=== PATIENT | male | born 1970 | race Caucasian/White ===

== ENCOUNTER 2021-04-09 08:57 | Inpatient (IN) | payer OTHER ==
[~2021-04-09] VITALS: Ht 177.8 cm; Wt 103.0 kg
[~2021-04-09 08:57] MED LIST: AMLODIPINE BESY10 MG PO; AURYXIA210 MG PO; CALCIUM ACETAT667 M1 PO; CALCIUM500 M1 PO; CATAPRES 0.1MG0.1 MG PO; ECOTRIN81 MG PO; ESZOPICLONE3 MG PO; FENOFIBRATE160 MG PO; GABAPENTIN800 MG PO; HUMALOG MI100 UNIT/4 SQ; METOPROLOL TAR100 MG PO; RENAGEL800 MG PO; TYLENOL 500 MG500 MG PO; VITAMIN D3125 MCG PO; VITAMIN D35000 UNIT PO; ZOFRAN4 MG PO
[2021-04-09 10:49] LABS: HEMOGLOBIN 11.9 gm/dl (14.0-17.5); RED BLOOD COUNT 3.93 M/UL (4.20-5.50); WHITE BLOOD COUNT 4.9 K/UL (4.5-11.0)
[2021-04-09] MEDS ORDERED: HYDRALAZINE HCL25 MG PO (11:57)
[2021-04-09] MEDS ORDERED: COREG25 MG PO (12:05)
[2021-04-09] MEDS ORDERED: LUNESTA1 MG PO (12:06)
--- NOTE | 2021-04-09 12:49 | NUR ---
AT 10AM UPON PATIENT ARRIVAL AFTER PATIENT TRANSFERRED TO BED FROM [facility], PATIENT NOTED TO BECOME LETHARGIC AND NONCOMMUNICATIVE. WITH STERNAL RUB AND AMMONIA INHALANT PATIENT BECOMES AWAKE AND ALERT. MD PRESENT AT BEDSIDE.
[2021-04-09] MEDS ORDERED: TOPAMAX100 MG PO (17:09)
[2021-04-09] MEDS ORDERED: WELLBUTRIN SR150 M1 PO (17:10)
[2021-04-10 03:15] LABS: HEMOGLOBIN 10.8 gm/dl (14.0-17.5); RED BLOOD COUNT 3.6 M/UL (4.20-5.50); WHITE BLOOD COUNT 4.2 K/UL (4.5-11.0)
[2021-04-10 10:15] LABS: HBSAG SCREEN Negative (Negative); HEP A AB, IGM Negative (Negative); HEP B CORE AB, IGM Negative (Negative); HEP C VIRUS AB 0.1 (0.0-0.9)
[2021-04-10] MEDS ORDERED: CALCIUM CARBON500 MG PO (14:51)
[2021-05-30] MEDS ORDERED: COREG12.5 MG PO (11:55)
[2021-05-30] MEDS ORDERED: BASAGLAR K100 UNIT/1 SQ (11:55)
[2021-05-30] MEDS ORDERED: GABAPENTIN800 MG PO (12:06)
[2021-05-30] MEDS ORDERED: HUMALOG MI100 UNITS/ SQ (12:08)
== END 2021-04-10 17:53 | disposition home or self-care (01) | DRG 640 ==
LOC: PROG CARE 10:19
PROVIDERS: Physician Assistant; ADMIT Internal Medicine
PROC: 5A1D70Z Performance of Urinary Filtration, Intermittent, Less than 6 Hours Per Day (ICD-10-PCS; principal; 2021-04-09)
DX: E87.5 Hyperkalemia (principal); N18.6 End stage renal disease; I12.0 Hypertensive chronic kidney disease with stage 5 chronic kidney disease or end stage renal disease; I44.0 Atrioventricular block, first degree; E78.5 Hyperlipidemia, unspecified; E83.51 Hypocalcemia; E11.22 Type 2 diabetes mellitus with diabetic chronic kidney disease; Z20.822 Contact with and (suspected) exposure to COVID-19; F43.10 Post-traumatic stress disorder, unspecified; E11.21 Type 2 diabetes mellitus with diabetic nephropathy; F32.9 Major depressive disorder, single episode, unspecified; Z91.14 Patient's other noncompliance with medication regimen; Z79.4 Long term (current) use of insulin; Z98.49 Cataract extraction status, unspecified eye; Z90.89 Acquired absence of other organs; R94.31 Abnormal electrocardiogram [ECG] [EKG]
CPT/HCPCS: 36415; 80053; 80074; 82140; 82803; 82962; 84439; 84443; 85025; 90935; 90937; 93005; 94664; 94760; 97161; U0002

== ENCOUNTER 2021-05-30 12:36 | Observation (INO) | payer OTHER ==
[~2021-05-30] VITALS: Ht 180.3 cm; Wt 100.4 kg
[~2021-05-30 12:36] MED LIST changes: +BASAGLAR K100 UNIT/1 SQ; +CALCIUM CARBON500 MG PO; +COREG12.5 MG PO; +COREG25 MG PO; +HUMALOG MI100 UNITS/ SQ; +HYDRALAZINE HCL25 MG PO; +LUNESTA1 MG PO; +TOPAMAX100 MG PO; +WELLBUTRIN SR150 M1 PO
[2021-05-30 13:13] LABS: HEMOGLOBIN 10.9 gm/dl (14.0-17.5); RED BLOOD COUNT 3.54 M/UL (4.20-5.50); WHITE BLOOD COUNT 4.4 K/UL (4.5-11.0)
[2021-05-30] MEDS ORDERED: VITAMIN D3125 MCG PO (16:54)
[2021-05-30] MEDS ORDERED: VISTARIL 50 MG50 MG PO (16:56)
[2021-05-30] MEDS ORDERED: BRINZOLAMIDE15 ML EYEBOTH (16:57)
[2021-05-30] MEDS ORDERED: COMBIGAN EYE DRO5 ML EYEBOTH (16:57)
[2021-05-30] MEDS ORDERED: CIALIS20 MG PO (16:59)
[2021-05-30] MEDS ORDERED: NORVASC5 MG PO (17:08)
[2021-05-30] MEDS ORDERED: ROCALTROL CA0.25 MCG PO (17:25)
[2021-05-30] MEDS ORDERED: CALCIUM500 M1 PO (19:53)
[2021-05-31 06:30] LABS: HEMOGLOBIN 10.6 gm/dl (14.0-17.5); RED BLOOD COUNT 3.4 M/UL (4.20-5.50); WHITE BLOOD COUNT 4.2 K/UL (4.5-11.0)
== END 2021-05-31 18:31 | disposition home or self-care (01) ==
LOC: ER1 12:36 → CDU 15:18 → M/S 20:09
PROVIDERS: Emergency Medicine; Physician Assistant Medical; ADMIT Internal Medicine
DX: E11.649 Type 2 diabetes mellitus with hypoglycemia without coma (principal); G93.41 Metabolic encephalopathy; I12.0 Hypertensive chronic kidney disease with stage 5 chronic kidney disease or end stage renal disease; E11.22 Type 2 diabetes mellitus with diabetic chronic kidney disease; N18.6 End stage renal disease; E78.5 Hyperlipidemia, unspecified; F43.10 Post-traumatic stress disorder, unspecified; F32.9 Major depressive disorder, single episode, unspecified; R93.0 Abnormal findings on diagnostic imaging of skull and head, not elsewhere classified; R94.31 Abnormal electrocardiogram [ECG] [EKG]; Z91.19 Patient's noncompliance with other medical treatment and regimen; Z79.82 Long term (current) use of aspirin; Z79.4 Long term (current) use of insulin; Z79.899 Other long term (current) drug therapy; Z20.822 Contact with and (suspected) exposure to COVID-19; Z99.2 Dependence on renal dialysis
CPT/HCPCS: 70450; 71045; 80048; 80053; 82550; 82553; 82962; 83735; 83874; 84439; 84443; 84484; 85025; 85027; 85610; 85730; 87040; 90937; 93005; 96374; 99285; G0378; Q0177; U0002